=== PATIENT | male | born 1975 | race Caucasian/White ===

== ENCOUNTER 2021-05-21 11:24 | Emergency (ER) | payer MEDICARE, OTHER ==
[2021-05-21 13:32] LABS: BASOPHIL 0.9 % (0-2); EOSINOPHIL 2.1 % (0-5); HCT 39.7 % (42.0-52.0); HGB 13.1 g/dl (13.2-18.0); LYMPHOCYTE 11.7 % (15-48); MCH 32.1 pg (25.0-31.0); MCV 97.3 fL (78.0-100.0); MONOCYTE 7.5 % (0-12); NEUTROPHIL 77.5 % (41-80); NRBC 0; PLT 221 K/uL (150-400); RBC 4.08 M/uL (4.70-6.00); RDW 14.1 % (11.5-14.0); WBC 11.7 K/uL (4.0-10.5)
[2021-05-21 13:50] LABS: ALBUMIN 2.9 g/dL (3.4-5.0); BILIRUBIN - TOTAL 0.8 mg/dL (0.2-1.0); BUN/CREAT RATIO (CALC) 19.5 RATIO; CREATININE 0.87 mg/dL (0.67-1.17); GLOBULIN (CALCULATION) 4.6 g/dL; POTASSIUM 4.1 mmol/L (3.5-5.1); TOTAL PROTEIN 7.5 g/dL (6.4-8.2)
[2021-05-21 14:28] LABS: CORONAVIRUS 2019 SARS-COV-2 NEGATIVE (NEGATIVE); INFLUENZA A NAA NEGATIVE (NEGATIVE)
[2021-05-21] MEDS ORDERED: VENTOLIN HFA IN18 GM INH (16:41)
[2021-05-21] MEDS ORDERED: AZITHROMYCIN 2250 MG PO (16:41)
== END 2021-05-21 17:11 | disposition home or self-care (01) ==
LOC: FER 11:24
PROVIDERS: Internal Medicine
DX: J98.11 Atelectasis (principal); Z20.822 Contact with and (suspected) exposure to COVID-19
CPT/HCPCS: 36415; 71275; 73502; 80053; 84484; 85025; 85379; U0002